=== PATIENT | male | born 1960 | race Caucasian/White ===

== ENCOUNTER 2018-09-04 16:35 | Emergency (ER) | payer BC ==
[2018-09-04 16:47] VITALS: BP 157/77; PULSE 81; TEMP 98.6; BMI 37.4
--- NOTE | 2018-09-04 17:00 | PDOC ---
History of Present Illness - General Chief Complaint: Pain Stated Complaint: RIGHT MID FINGER PAIN 1 WEEK Time Seen by Provider: 09/04/18 16:58 - History of Present Illness Initial Comments: 58yo right-handed M with history of HTN, DM, CKD presenting with pain to the third digit on his left hand. Patient states he has had swelling and 4/10 tenderness for about a week. 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 He denies history of injury to the hands and has never seen an orthopedist. He has taken tylenol at home, most recently last night, which has relieved his pain. Denies recent pressure washing or sandblasting. No fevers , chills, chest pain, or shortness of breath. PCP: Dr. Denise Taylor Past History - Past Medical History Allergies/Adverse Reactions: Allergies Allergy/AdvReac Type Severity Reaction Status Date / Time Penicillins Allergy Intermediate Swelling Verified 09/04/18 16:36 Home Medications: Ambulatory Orders Amlodipine Besylate 10 mg PO DAILY 09/04/18 Atorvastatin Ca [Lipitor] 10 mg PO HS 09/04/18 Dulaglutide [Trulicity] 0.75 mg SQ WEEKLY 09/04/18 Glipizide [Glipizide ER] 10 mg PO DAILY 09/04/18 Insulin Glargine,Hum.rec.anlog [Toutyshawn Solostgilbert] 13 units SQ DAILY 09/04/18 Metoprolol Succinate 50 mg PO DAILY 09/04/18 COPD: No Diabetes: Yes HTN: Yes - Suicide/Smoking/Psychosocial Hx Smoking History: Never smoked Information on smoking cessation initiated: No Hx Alcohol Use: No Drug/Substance Use Hx: No Review of Systems - Review of Systems Comments:: Constitutional: no fever, no chills HEENT: no throat pain, no dysphagia Cardiovascular: no chest pain, no palpitations Respiratory: no cough, no shortness of breath Gastrointestinal: no abdominal pain, no nausea Genitourinary: no dysuria, no frequency Musculoskeletal: no back pain, +finger pain Skin: no rash, no itching Neurologic: no headache, no dizziness *Physical Exam - Vital Signs Last Vital Signs Temp Pulse Resp BP Pulse Ox 98.6 F 81 16 157/77 99 09/04/18 16:36 09/04/18 16:36 09/04/18 16:36 09/04/18 16:36 09/04/18 16:36 - Physical Exam Comments: General: Awake, alert, and fully oriented, in no acute distress Head: No signs of trauma Eyes: EOMI, sclera anicteric ENT: Moist mucus membranes Neck: Normal ROM, supple Lungs: Lungs clear, Normal breath sounds Cardio: Regular rhythm, S1 and S2 present Abdomen: Soft, nontender. No guarding, no rebound, no masses Extremities: Normal range of motion, Distal pulses present Third digit for R. hand: Tender to palpation of DIP, Edematous when compared to L. hand, No erythema, warmth, skin breaks, or rash SKIN: Warm, Dry, normal turgor Neurologic: Cranial nerves II through XII grossly intact. Normal speec Moderate Sedation - Procedure Monitoring Vital Signs: Procedure Monitoring Vital Signs Temperature 98.6 F 09/04/18 16:36 Pulse Rate 81 09/04/18 16:36 Respiratory Rate 16 09/04/18 16:36 Blood Pressure 157/77 09/04/18 16:36 O2 Sat by Pulse Oximetry (%) 99 09/04/18 16:36 Medical Decision Making - Medical Decision Making 58yo M with history of HTN, DM presenting with pain to the third digit on his left hand. DDX including but not limited to fracture, tendon injury, flexor tenosynovitis, dislocation Xrays of R. hand and fingers Tylenol 650mg 09/04/18 17:14 *DC/Admit/Observation/Transfer Diagnosis at time of Disposition: Finger pain, right - Discharge Dispostion Disposition: HOME Condition at time of disposition: Stable - Referrals Referrals: Esperanza Taylor MD [Primary Care Provider] - Ricardo Syed MD [Staff Physician] - - Patient Instructions Printed Discharge Instructions: How to Herbie Tape Additional Instructions: You came to the ED for pain in your finger. We took Xrays which did not indicate acute pathology. You can splint the painful finger to a finger next to it with tape. Review the hand out provided. We have referred you to a hand specialist if your symptoms do not improve within a week. Call the number provided. Immediate medical attention is required if you experience: redness or hardness around the finger, a red streak, fever or chills. If you think you have an emergency, call for medical help right away. - Post Discharge Activity
[2018-09-04] MEDS ORDERED: ACETAMINOPHEN 325 MG TABLET (FP) PO ONE (17:12)
--- NOTE | 2018-09-04 17:14 | PDOC ---
Attending Attestation - Resident Resident Name: Gail Pierce
[2018-09-04] MEDS ORDERED: ACETAMINOPHEN 325 MG TABLET (FP) ONE (17:18)
== END 2018-09-04 18:02 | disposition home or self-care (01) ==
LOC: FER 16:35
DX: M79.644 Pain in right finger(s) (principal); E11.22 Type 2 diabetes mellitus with diabetic chronic kidney disease; I12.9 Hypertensive chronic kidney disease with stage 1 through stage 4 chronic kidney disease, or unspecified chronic kidney disease; N18.9 Chronic kidney disease, unspecified; Z79.4 Long term (current) use of insulin
CPT/HCPCS: 73130-TC-RT-FY; 73140-TC-RT-FY; 99282-25

== ENCOUNTER 2019-06-13 07:58 | Day surgery (SDC) | payer BC ==
[2019-06-12 17:05] VITALS: BMI 38.7
[2019-06-13 08:25] LABS: EOS % 5.9 % (0-4.5); HEMATOCRIT 38.4 % (35.4-49); HEMOGLOBIN 13.3 GM/dL (11.7-16.9); LYMPH % 25.2 % (8-40); MCH 30.3 pg (25.7-33.7); MCHC 34.6 g/dl (32.0-35.9); MEAN CELL VOLUME 87.8 fl (80-96); MEAN PLT VOLUME 8.3 fl (7.5-11.1); MONO % 7.2 % (3.8-10.2); NEUT % 60.7 % (42.8-82.8); PLATELET COUNT 228 K/MM3 (134-434); RBC 4.38 M/mm3 (4.00-5.60); RDW 14.2 % (11.9-15.9); WHITE BLOOD COUNT 8.1 K/mm3 (4.0-10.0)
[2019-06-13 08:50] LABS: BLOOD UREA NITROGEN 24.3 mg/dL (7-18); CALCIUM 9.2 mg/dL (8.5-10.1); CREATININE 1.5 mg/dL (0.55-1.3); POTASSIUM 4.5 mmol/L (3.5-5.1)
[2019-06-13 09:18] LABS: INR 0.85 (0.83-1.09)
[2019-06-13 18:08] VITALS: BP 113/73; PULSE 64; TEMP 97.8
--- NOTE | 2019-06-27 16:07 | PATH ---
Surgical Pathology Report Patient Name: DAVON PHILLIPS [facility]. Rec. #: [id number] /Age/Gender: 1960 (Age: 59) / M Account: [id number] Location: RADIOLOGY INTER Taken: 06/13/2019 Received: 06/13/2019 Reported: 06/27/2019 Physicians: Tomás Higginbotham M.D. Specimen(s) Received RENAL BIOPSY Clinical History 59-year-old male with hypertension, diabetes mellitus and slowly worsening renal function Intraoperative Consult Diagnosis Renal biopsy: Glomeruli present. Venancio Conley M.D., 06/13/2019 Final Diagnosis RENAL, BIOPSY: MESANGIAL SCLEROSIS 1+ FOOT PROCESS EFFACEMENT, 50%. CONSISTENT WITH- DIFFUSE DIABETIC GLOMERULOSCLEROSIS, MILD TO MODERATE. TUBULAR ATROPHY AND INTERSTITIAL FIBROSIS, MODERATE. ARTERIO- AND ARTERIOLOSCLEROSIS, MILD TO MODERATE. SEE COMMENT. Comment: Immunofluorescence microscopy shows weak linear staining of glomerular and tubular basement membranes for IgG, albumin and kappa light chain. These findings are likely related to the presence of diabetic glomerulosclerosis. Of note, the absence of any electron dense deposits by electron microscopy argues against monoclonal kappa light chain deposition disease. This Case was sent for consultation to Dr. Jerry Beauchamp from [facility], [place], [place] ([id number]), the diagnosis above reflects his opinion. Electronically Signed Lynne Pierce M.D. Microscopic Description Sections are stained with H&E, PAS, trichrome, Congo red and JMS. Sections show 1 core of renal cortex and 1 fragment of fibroconnective tissue. Six(6) glomeruli are seen, 2 of which show complete global sclerosis. The remaining glomeruli are mildly enlarged and show mild diffuse mesangial sclerosis and focal periglomerular fibrosis. No crescents, fibrinoid necrosis, or fibrin thrombi are seen. Tubular basement membranes show mild diffuse thickening. There is moderate patchy tubular atrophy and interstitial fibrosis affecting 50% of the cortical area, accompanied by a mild patchy mononuclear inflammatory cell infiltrate. No granulomas or interstitial eosinophils are seen. No atypical fractured crystalline casts or intracytoplasmic crystalline inclusions are seen. Arteries show mild intimal fibrosis and arterioles show mild to moderate hyalinosis. Immunofluorescence (Procedure) INTERPRETATION [facility]- IMMUNOFLUORESCENCE REPORT GLOMERULI TUBULES INTERSTITIUM VESSELS IgG 10 gloms +/- Global linear GCW TBM's +/- linear neg neg IgM 10 gloms neg neg neg neg IgA 10 gloms neg Casts 2+ neg neg C3 2 of 10 gloms 2+ Global focal neg neg arteriole talley 1+ C1 10 gloms neg neg neg neg FBGN 10 gloms neg neg neg neg ALB 10 gloms 1+ global linear GCW TBM's 1+ Linear neg neg Painter 10 gloms 1+ Global linear GCW Casts 1+ TBM's 1+ Linear neg arteriole talley 1+ linear LAMBDA 10 gloms neg casts 1+ neg neg ELECTRON MICROSCOPY (INTERPRETATION): Glomerular capillary lumina are generally patent. Glomerular and tubular basement membranes show mild thickening. Mesangial areas show mild accumulation of matrix. No immune type electron dense deposits, fibrils, punctuate/granular densities, or crystalline inclusions are seen. Podocytes show 50% foot process effacement. Tubular epithelium show focal sluffing. Few electron dense deposits consistent with hyaline are seen within mesangial areas. Interstitial collagen and a few interstitial mononuclear inflammatory cells are noted. An arteriole shows mural hyalinosis. Gross Description Received in saline labeled "renal biopsy," is a 1.6 cm in length x 0.1 cm in diameter monae, cylindrical portion of soft tissue. The specimen is divided, placed into 10% buffered formalin, Senthil fixative and glutaraldehyde. The specimen is sent to [facility] for further studies. 06/13/201906/13/2019
== END 2019-06-13 16:30 | disposition home or self-care (01) ==
LOC: JRADIR 07:58
PROVIDERS: ATTEND Internal Medicine Nephrology
PROC: 0TB03ZX Excision of Right Kidney, Percutaneous Approach, Diagnostic (ICD-10-PCS; principal; 2019-06-13)
DX: N26.9 Renal sclerosis, unspecified (principal); E11.9 Type 2 diabetes mellitus without complications; I10 Essential (primary) hypertension
CPT/HCPCS: 36415; 50200; 76098-TC-FY; 76942-TC; 80048; 85025; 85610; 87899

== ENCOUNTER 2020-07-29 11:01 | Day surgery (SDC) | payer BC ==
[2020-07-24 12:42] VITALS: BMI 37.5
[2020-07-29 13:33] VITALS: TEMP 97.9
[2020-07-29 14:25] VITALS: BP 114/56; PULSE 88
== END 2020-07-29 14:10 | disposition home or self-care (01) ==
LOC: FASU-ENDO 11:01
PROVIDERS: ATTEND Internal Medicine Gastroenterology
PROC: 0DBP8ZX Excision of Rectum, Via Natural or Artificial Opening Endoscopic, Diagnostic (ICD-10-PCS; principal; 2020-07-29 12:58)
DX: Z12.11 Encounter for screening for malignant neoplasm of colon (principal); K62.1 Rectal polyp; K64.1 Second degree hemorrhoids
CPT/HCPCS: 82962; 88305-TC